=== PATIENT | female | born 1940 | race African-American/Black ===

== ENCOUNTER 2020-10-26 09:18 | Day surgery (SDC) | payer OTHER ==
[2020-10-26] MEDS: CIPROFLOXACIN 0.3% EYE DROPS 5 ML BOTTLE ONE ×3 (10:35→10:45)
[2020-10-26] MEDS: TROPICAMIDE 1% OPHTH SOLN 15 ML BOTTLE ONE ×3 (10:35→10:45)
[2020-10-26] MEDS: PHENYLEPHRINE 2.5% OPHTH SOLN 15 ML BOTTLE ONE ×3 (10:35→10:45)
[2020-10-26] MEDS: CYCLOPENTOLATE 2% OPHTH SOLN 2 ML BOTTLE ONE ×3 (10:35→10:45)
[2020-10-26 10:42] VITALS: BMI 35.5
[2020-10-26] MEDS ORDERED: EPI-SHUGARCAINE (EPINEPHRINE 0.025% & LIDOCAINE-PF 0.75%) 4ML ONE (11:24)
[2020-10-26] MEDS ORDERED: POVIDONE-IODINE 5% OPHTHALMIC PREP 30 ML SOLUTION ONE (11:24)
[2020-10-26] MEDS ORDERED: ACETYLCHOLINE 1:100 INTRA-OCUL 20 MG/2 ML KIT ONE (11:24)
[2020-10-26] MEDS ORDERED: TETRACAINE 0.5% OPHTH SOLN 2 ML BOTTLE ONE (11:24)
[2020-10-26] MEDS ORDERED: TRYPAN BLUE 0.5 ML DISP.SYRIN ONE (11:24)
[2020-10-26] MEDS ORDERED: MIDAZOLAM HCL 2 MG/2 ML SINGLE DOSE VIAL ONE (11:48)
[2020-10-26 12:54] VITALS: TEMP 97.8
[2020-10-26 13:10] VITALS: BP 142/74; PULSE 78
== END 2020-10-26 13:13 | disposition home or self-care (01) ==
LOC: FASU 09:18
PROVIDERS: ATTEND Ophthalmology
PROC: 08RK3JZ Replacement of Left Lens with Synthetic Substitute, Percutaneous Approach (ICD-10-PCS; principal; 2020-10-26 11:54)
DX: H25.89 Other age-related cataract (principal)
CPT/HCPCS: 82962

== ENCOUNTER 2020-11-23 07:36 | Day surgery (SDC) | payer OTHER ==
[2020-11-19 15:20] VITALS: BMI 33.2
[2020-11-23] MEDS ORDERED: TETRACAINE 0.5% OPHTH SOLN 2 ML BOTTLE ONE ×2 (08:19→10:19)
[2020-11-23] MEDS: CYCLOPENTOLATE 2% OPHTH SOLN 2 ML BOTTLE ONE ×3 (08:30→08:40)
[2020-11-23] MEDS: CIPROFLOXACIN 0.3% EYE DROPS 5 ML BOTTLE ONE ×3 (08:30→08:40)
[2020-11-23] MEDS: TROPICAMIDE 1% OPHTH SOLN 15 ML BOTTLE ONE ×2 (08:30→08:35)
[2020-11-23] MEDS: PHENYLEPHRINE 2.5% OPHTH SOLN 15 ML BOTTLE ONE ×3 (08:30→08:40)
[2020-11-23] MEDS ORDERED: POVIDONE-IODINE 5% OPHTHALMIC PREP 30 ML SOLUTION ONE (10:19)
[2020-11-23] MEDS ORDERED: EPI-SHUGARCAINE (EPINEPHRINE 0.025% & LIDOCAINE-PF 0.75%) 4ML ONE (10:19)
[2020-11-23] MEDS ORDERED: ACETYLCHOLINE 1:100 INTRA-OCUL 20 MG/2 ML KIT ONE (10:19)
[2020-11-23] MEDS ORDERED: TRYPAN BLUE 0.5 ML DISP.SYRIN ONE (10:27)
[2020-11-23] MEDS ORDERED: KETOROLAC TROMETHAMINE 30 MG/1 ML VIAL ONE (10:40)
[2020-11-23] MEDS ORDERED: MIDAZOLAM HCL 2 MG/2 ML SINGLE DOSE VIAL ONE ×2 (10:40→10:46)
[2020-11-23 14:07] VITALS: BP 160/62; PULSE 78; TEMP 98.1
[2020-11-23] MEDS ORDERED: CEFUROXIME SODIUM 3 MG/0.3 ML OPHTHALMIC SYRINGE ONE (14:25)
== END 2020-11-23 12:30 | disposition home or self-care (01) ==
LOC: FASU 07:36
PROVIDERS: ATTEND Ophthalmology
PROC: 08RJ3JZ Replacement of Right Lens with Synthetic Substitute, Percutaneous Approach (ICD-10-PCS; principal; 2020-11-23 10:44)
DX: H25.89 Other age-related cataract (principal)
CPT/HCPCS: 82962